=== PATIENT | male | born 1995 | race Caucasian/White ===

== ENCOUNTER 2019-12-20 12:08 | Emergency (ER) | payer OTHER ==
[2019-12-20] MEDS ORDERED: Lidocaine 1% with EPINEPHrine 1:100,000 20 ML MDV ONE (12:20)
[2019-12-20] MEDS ORDERED: Lidocaine 1% with EPINEPHrine 1:100,000 20 ML MDV INJECT ONE (12:25)
[2019-12-20] MEDS ORDERED: Bacitracin/Neomycin/Polymyxin B Oint 0.9 GM U/D Packet TOP ONE (12:35)
--- NOTE | 2019-12-20 12:43 | EDM.PDOC ---
ED HPI GENERAL MEDICAL PROBLEM - General Chief Complaint: Laceration Stated Complaint: LACERATION TO FOREHEAD Time Seen by Provider: 12/20/19 12:18 - History of Present Illness INITIAL COMMENTS - FREE TEXT/NARRATIVE: presents for right upper eyebrow laceration which occurred just less than 1 hour prior to arrival. 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 The crowbar slipped back and hit his right upper eyebrow forehead laceration. Hemostasis achieved prior to arrival. There is a small superficial linear laceration with some swelling around it. Patient denies loss conscious. Tetanus was last updated. There is no ecchymosis no headache or visual changes. The patient is otherwise healthy 24-year-old male. - Related Data Allergies Allergy/AdvReac Type Severity Reaction Status Date / Time No Known Allergies Allergy Verified 12/20/19 12:17 Home Meds: Home Meds . [No Known Home Meds] 05/12/18 [History] Past Medical History - Past Health History Medical/Surgical History: Denies Medical/Surgical History Social & Family History - Family History Family Medical History: Noncontributory - Tobacco Use Smoking Status *Q: Never Smoker - Caffeine Use Caffeine Use: Reports: None - Recreational Drug Use Recreational Drug Use: No ED ROS GENERAL - Review of Systems Review Of Systems: See Below Constitutional: Reports: No Symptoms HEENT: Reports: Other Respiratory: Reports: No Symptoms Cardiovascular: Reports: No Symptoms GI/Abdominal: Reports: No Symptoms Musculoskeletal: Reports: No Symptoms Skin: Reports: Wound Neurological: Reports: No Symptoms. Denies: Headache, Syncope ED EXAM, SKIN/RASH Exam: See Below Exam Limited By: No Limitations General Appearance: Alert, No Apparent Distress Nose: Normal Inspection, Normal Mucosa, No Blood Throat/Mouth: Normal Inspection, Normal Lips, Normal Teeth, Normal Gums, Normal Oropharynx Head: Atraumatic, Normocephalic, Other (eye brow laceration right) Neck: Normal Inspection, Supple, Non-Tender, Full Range of Motion Respiratory/Chest: No Respiratory Distress, Lungs Clear, Normal Breath Sounds Cardiovascular: Normal Peripheral Pulses, Regular Rate, Rhythm Back Exam: Normal Inspection, Full Range of Motion Extremities: Normal Inspection, Normal Range of Motion Neurological: Alert, Oriented (no cranial nerve deficits ) Skin: Warm, Dry, Wound/Incision (linear 1 cm laceration to the right upper eye brow) ED SKIN PROCEDURES - Laceration/Wound Repair Right Forehead Appearance: Linear Anesthetic Type: Local Local Anesthesia - Lidocaine (Xylocaine): 1% with EPI Local Anesthetic Volume: Other (0.5 ml) Exploration/Debridement/Repair: No Foreign Material Found, Wound Margins Revised Closed with: Sutures Lac/Wound length In cm: 1 Suture Size: 5-0 # of Sutures: 2 Tetanus Status Addressed: Yes Complications: No Progress/Comments: pt tolerated it well. Course - Vital Signs Last Recorded V/S: Last Vital Signs Temp 97.6 F 12/20/19 12:08 Pulse 75 12/20/19 12:08 Resp 14 12/20/19 12:08 BP 140/85 12/20/19 12:08 Pulse Ox 97 12/20/19 12:08 - Orders/Labs/Meds Meds: Medications Discontinued Medications Generic Name Dose Route Start Last Admin Trade Name Britt PRN Reason Stop Dose Admin Lidocaine/Epinephrine Confirm 12/20/19 12:20 12/20/19 12:25 Xylocaine 1% With Epinephrine 1:100,000 Administered 12/20/19 12:21 Not Given Dose 20 ml .ROUTE .STK-MED ONE Lidocaine/Epinephrine 20 ml 12/20/19 12:25 12/20/19 12:26 Xylocaine 1% With Epinephrine 1:100,000 INJECT 12/20/19 12:26 2 ml ONETIME ONE Administration Neomycin/Polymyxin/Bacitracin 1 each 12/20/19 12:35 Triple Antibiotic Oint TOP 12/20/19 12:36 ONETIME ONE - Re-Assessments/Exams Free Text/Narrative Re-Assessment/Exam: 12/20/19 12:45 Laceration was repaired. Return in 5 days for suture removal. Wound care instructions given. Patient has no orbital rim pain bilaterally no bony crepitus or step-offs extraocular movements intact no signs of eye entrapment. Departure - Departure Time of Disposition: 12:38 Disposition: Home, Self-Care 01 Condition: Good Clinical Impression: Eyebrow laceration Qualifiers: Encounter type: initial encounter Laterality: right Qualified Code(s): S01.111A - Laceration without foreign body of right eyelid and periocular area, initial encounter Traumatic hematoma of right eyebrow Qualifiers: Encounter type: initial encounter Qualified Code(s): S00.11XA - Contusion of right eyelid and periocular area, initial encounter - Discharge Information *PRESCRIPTION DRUG MONITORING PROGRAM REVIEWED*: No *COPY OF PRESCRIPTION DRUG MONITORING REPORT IN PATIENT NAYELI: No Instructions: Laceration Care, Adult, Sutured Wound Care, [id number] Referrals: Aleta Salter MD [Primary Care Provider] - Forms: ED Department Discharge Additional Instructions: return here to ED in 5 days this Friday anytime to have them removed. 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 apply ice on and off the rest of the day to help with swelling. Sepsis Event Note (ED) - Evaluation Sepsis Screening Result: No Definite Risk - Focused Exam Vital Signs: Vital Signs Temp Pulse Resp BP Pulse Ox 12/20/19 12:08 97.6 F 75 14 140/85 97
== END 2019-12-20 12:45 | disposition home or self-care (01) ==
LOC: KA.ED 12:08
DX: S01.111A Laceration without foreign body of right eyelid and periocular area, initial encounter (principal); W26.8XXA Contact with other sharp object(s), not elsewhere classified, initial encounter
CPT/HCPCS: 12001; 12011; 99282; 99283